=== PATIENT | female | born 2000 | race Two or more races ===

== ENCOUNTER 2018-03-19 20:18 | Emergency (ER) | payer MEDICAID ==
[~2018-03-19] VITALS: Ht 160 cm; Wt 120.2 kg
[2018-03-19] MEDS ORDERED: ACETAMINOPHEN 325 MG TAB PO ONE ×2 (20:34→21:00)
[2018-03-19 20:38] VITALS: BP 148/70
[2018-03-19 21:19] LABS: Basophils # (auto) 0.1 uL; Basophils % (auto) 0.4 % (0.0-2.0); Eosinophils # (auto) 0.3 uL; Eosinophils % (auto) 1.3 % (0.0-7.0); Hematocrit 33.2 % (36.0-46.0); Hemoglobin 10.7 g/dL (12.2-16.2); Lymphocytes # (auto) 1.4 uL; Lymphocytes % (auto) 7.3 % (10.0-50.0); Mean Corpuscular Hemoglobin 25.2 pg (28.0-32.0); Mean Corpuscular Hgb Conc. 32.2 g/dL (32.0-36.0); Mean Corpuscular Volume 78.3 fL (80.0-100.0); Monocytes # (auto) 0.9 uL; Monocytes % (auto) 4.4 % (0.0-12.0); Neutrophils # (auto) 17.1 uL; Neutrophils % (auto) 86.6 % (37.0-80.0); Platelet Count (auto) 429 10^3/uL (140-450); Red Blood Cells 4.24 10^6/uL (4.0-5.20); Red Cell Distribution Width 15.4 % (11.8-14.3); White Blood Cell 19.8 10^3/uL (4.4-10.8)
[2018-03-19 21:37] LABS: Albumin 3.7 g/dL (3.4-5.0); BUN/Creatinine Ratio 12.5; Calcium 9.3 mg/dL (8.5-10.1); Potassium 4.1 mmol/L (3.5-5.1)
[2018-03-19 21:39] LABS: Bilirubin, Total 0.3 mg/dL (0.2-1.0); Total Protein 9.6 g/dL (6.4-8.2)
[2018-03-19 21:56] LABS: Urine Bacteria NONE SEEN /hpf (None Seen); Urine Blood 2+ /uL (Negative); Urine Specific Gravity 1.016 (1.001-1.035); Urine WBC <1 /hpf (0 - 5)
== END 2018-03-20 03:37 | disposition left against medical advice (07) ==
LOC: ER 20:18
DX: R06.02 Shortness of breath (principal); N93.9 Abnormal uterine and vaginal bleeding, unspecified; Z53.21 Procedure and treatment not carried out due to patient leaving prior to being seen by health care provider
CPT/HCPCS: 36415; 80053; 81001; 83605; 84702; 85025; 87040